=== PATIENT | female | born 1985 | race American Indian/Alaskan Native ===

== ENCOUNTER 2017-05-07 13:57 | Emergency (ER) | payer SELFPAY | END 2017-05-07 13:58 | disposition left against medical advice (07) | LOC: ED 13:57 | DX: M54.5 Low back pain (principal); Z53.21 Procedure and treatment not carried out due to patient leaving prior to being seen by health care provider ==

== ENCOUNTER 2017-05-08 18:30 | Emergency (ER) | payer MEDICAID ==
[2017-05-08] MEDS ORDERED: ALDOMET PO ONE (19:44)
[2017-05-08 20:28] LABS: Basophils % (Auto) 0.3 % (0.0-1.8); Hematocrit 33.4 % (30.3-42.9); Hemoglobin 11.1 gm/dl (10.1-14.3); Mean Corpuscular HGB Conc 33 % (30-34); Mean Corpuscular Hemoglobin 28 pg (28-32); Mean Corpuscular Volume 85 fl (79-97); Platelet Count 209 K/mm3 (140-440); Red Blood Count 3.93 M/mm3 (3.65-5.03); Red Cell Distribution Width 13.5 % (13.2-15.2); White Blood Count 7.9 K/mm3 (4.5-11.0)
[2017-05-08] MEDS ORDERED: NORCO 10/325 PO ONE (22:35)
--- NOTE | 2017-05-08 22:41 | Emergency Department Report ---
ED General Adult HPI - General Chief complaint: High BP Stated complaint: ,BACK PAIN Time Seen by Provider: 05/08/17 22:34 Source: patient Mode of arrival: Ambulatory Limitations: No Limitations - History of Present Illness Initial comments: Patient is a 31-year-old female past medical history of preeclampsia and hypertension who presents with lower back pain and migraine. Patient states that her back pain is a 9 out of 10 nothing makes it better and nothing makes it worse. She states that the pain radiates down to her buttocks as an achy type of pain that's intermittent. Patient denies having any chest pain or any shortness of breath. She also denies having any nausea or vomiting. Severity scale (0 -10): 8 - Related Data Home Medications Medication Instructions Recorded Confirmed Last Taken ALBUTEROL Inhaler [Proair] 2 puff IH QID PRN 08/20/15 08/20/15 Unknown Labetalol [Normodyne] 200 mg PO BID 08/20/15 08/20/15 Unknown Allergies Allergy/AdvReac Type Severity Reaction Status Date / Time Iodinated Contrast- Oral and Allergy Hives Verified 08/20/15 15:24 IV Dye metoclopramide HCl Allergy tachycardia, Verified 08/20/15 15:24 [From Reglan] elevates BP ED Review of Systems ROS: Stated complaint: ,BACK PAIN Other details as noted in HPI Constitutional: denies: chills, fever Eyes: denies: eye pain, eye discharge, vision change ENT: denies: ear pain, throat pain Respiratory: denies: cough, shortness of breath, wheezing Cardiovascular: denies: chest pain, palpitations Endocrine: no symptoms reported Gastrointestinal: denies: abdominal pain, nausea, diarrhea Genitourinary: denies: urgency, dysuria, discharge Musculoskeletal: back pain. denies: joint swelling, arthralgia Skin: denies: rash, lesions Neurological: denies: headache, weakness, paresthesias Psychiatric: denies: anxiety, depression Hematological/Lymphatic: denies: easy bleeding, easy bruising ED Past Medical Hx - Past Medical History Previous Medical History?: Yes Hx Hypertension: Yes (since 2009) Hx Congestive Heart Failure: No Hx Diabetes: No Hx Deep Vein Thrombosis: No Hx Renal Disease: No Hx Sickle Cell Disease: No Hx Headaches / Migraines: Yes (migraines) Hx Seizures: No Hx Asthma: Yes (last used inhaler 2 mos ago) Hx COPD: No Hx HIV: No - Surgical History Past Surgical History?: Yes Hx Breast Surgery: Yes (reduction) Additional Surgical History: 3 C-sections - Social History Smoking Status: Never Smoker Substance Use Type: Prescribed - Medications Home Medications: Home Medications Medication Instructions Recorded Confirmed Last Taken Type ALBUTEROL Inhaler [Proair] 2 puff IH QID PRN 08/20/15 08/20/15 Unknown History Labetalol [Normodyne] 200 mg PO BID 08/20/15 08/20/15 Unknown History ED Physical Exam - General Limitations: No Limitations General appearance: alert, in no apparent distress - Head Head exam: Present: atraumatic, normocephalic - Eye Eye exam: Present: normal appearance - ENT ENT exam: Present: mucous membranes moist - Neck Neck exam: Present: normal inspection - Respiratory Respiratory exam: Present: normal lung sounds bilaterally. Absent: respiratory distress - Cardiovascular Cardiovascular Exam: Present: regular rate, normal rhythm. Absent: systolic murmur, diastolic murmur, rubs, gallop - GI/Abdominal GI/Abdominal exam: Present: soft, normal bowel sounds - Extremities Exam Extremities exam: Present: normal inspection - Back Exam Back exam: Present: normal inspection - Neurological Exam Neurological exam: Present: alert, oriented X3 - Psychiatric Psychiatric exam: Present: normal affect, normal mood - Skin Skin exam: Present: warm, dry, intact, normal color. Absent: rash ED Course Vital Signs 05/08/17 05/08/17 05/08/17 19:39 22:06 22:30 Temperature 98.7 F 98.6 F Pulse Rate 90 93 H Respiratory 18 18 Rate Blood Pressure 186/108 189/124 150/93 Blood Pressure [Left] O2 Sat by Pulse 100 100 99 Oximetry 05/08/17 05/08/17 05/08/17 22:34 23:00 23:31 Temperature 98.3 F Pulse Rate 93 H Respiratory 19 Rate Blood Pressure 160/91 169/81 Blood Pressure 150/93 [Left] O2 Sat by Pulse 100 100 100 Oximetry - Consultations Consultation #1: 05/09/17 00:[address] Chan patient will need to continue to take her methyldopa and to follow-up with him. ED Medical Decision Making - Lab Data Result diagrams: 05/08/17 20:02 Lab Results 05/08/17 05/08/17 05/08/17 Range/Units 20:02 20:02 20:02 WBC 7.9 (4.5-11.0) K/mm3 RBC 3.93 (3.65-5.03) M/mm3 Hgb 11.1 (10.1-14.3) gm/dl Hct 33.4 (30.3-42.9) % MCV 85 (79-97) fl MCH 28 (28-32) pg MCHC 33 (30-34) % RDW 13.5 (13.2-15.2) % Plt Count 209 (140-440) K/mm3 Lymph % (Auto) 34.3 (13.4-35.0) % Morrill % (Auto) 5.0 (0.0-7.3) % Eos % (Auto) 1.0 (0.0-4.3) % Baso % (Auto) 0.3 (0.0-1.8) % Lymph # 2.7 (1.2-5.4) K/mm3 Morrill # 0.4 (0.0-0.8) K/mm3 Eos # 0.1 (0.0-0.4) K/mm3 Baso # 0.0 (0.0-0.1) K/mm3 Seg Neutrophils % 59.4 (40.0-70.0) % Seg Neutrophils # 4.7 (1.8-7.7) K/mm3 HCG, Quant 18501 H (0-4) mIU/mL Urine Color (Yellow) Urine Turbidity (Clear) Urine pH (5.0-7.0) Ur Specific Jerome (1.003-1.030) Urine Protein (Negative) mg/dL Urine Glucose (UA) (Negative) mg/dL Urine Ketones (Negative) mg/dL Urine Blood (Negative) Urine Nitrite (Negative) Urine Bilirubin (Negative) Urine Urobilinogen (<2.0) mg/dL Ur Leukocyte Esterase (Negative) Urine WBC (Auto) (0.0-6.0) /HPF Urine RBC (Auto) (0.0-6.0) /HPF U Epithel Cells (Auto) (0-13.0) /HPF Urine Bacteria (Auto) (Negative) /HPF Calcium Oxalate Crystal Urine Mucus /HPF Blood Type A POSITIVE Antibody Screen TNR SAJAN Antibody Screen Negative 05/08/17 Range/Units 23:36 WBC (4.5-11.0) K/mm3 RBC (3.65-5.03) M/mm3 Hgb (10.1-14.3) gm/dl Hct (30.3-42.9) % MCV (79-97) fl MCH (28-32) pg MCHC (30-34) % RDW (13.2-15.2) % Plt Count (140-440) K/mm3 Lymph % (Auto) (13.4-35.0) % Morrill % (Auto) (0.0-7.3) % Eos % (Auto) (0.0-4.3) % Baso % (Auto) (0.0-1.8) % Lymph # (1.2-5.4) K/mm3 Morrill # (0.0-0.8) K/mm3 Eos # (0.0-0.4) K/mm3 Baso # (0.0-0.1) K/mm3 Seg Neutrophils % (40.0-70.0) % Seg Neutrophils # (1.8-7.7) K/mm3 HCG, Quant (0-4) mIU/mL Urine Color Yellow (Yellow) Urine Turbidity Clear (Clear) Urine pH 6.0 (5.0-7.0) Ur Specific Jerome 1.018 (1.003-1.030) Urine Protein <15 mg/dl (Negative) mg/dL Urine Glucose (UA) Neg (Negative) mg/dL Urine Ketones Neg (Negative) mg/dL Urine Blood Neg (Negative) Urine Nitrite Neg (Negative) Urine Bilirubin Neg (Negative) Urine Urobilinogen 2.0 (<2.0) mg/dL Ur Leukocyte Esterase Neg (Negative) Urine WBC (Auto) 2.0 (0.0-6.0) /HPF Urine RBC (Auto) 2.0 (0.0-6.0) /HPF U Epithel Cells (Auto) 10.0 (0-13.0) /HPF Urine Bacteria (Auto) 1+ (Negative) /HPF Calcium Oxalate Crystal 2+ Urine Mucus Few /HPF Blood Type Antibody Screen SAJAN Antibody Screen - Medical Decision Making Chief medical diagnosis: Differential medical diagnosis: UTI, lumbosacral strain, metabolic abnormality I will get CBC, CMP, IM pain medication, oral pain medication and patient will get methyldopa Patient is 16 weeks no vaginal discharge no vaginal bleeding she can follow up with Dr. Chan. Gave the patient additional verbal discharge instructions. Patient agrees with plan. Critical care attestation.: If time is entered above; I have spent that time in minutes in the direct care of this critically ill patient, excluding procedure time. ED Disposition Clinical Impression: Back pain affecting in first trimester, Chronic hypertension in , Obesity, Class III, BMI 40-49.9 (morbid obesity) Disposition: - TO HOME OR SELFCARE Is pt being admited?: No Does the pt Need Aspirin: No Condition: Stable Instructions: Hypertension (ED) Referrals: RODDY CHAN MD [Primary Care Provider] - 3-5 Days
[2017-05-09] MEDS ORDERED: MORPHINE IM ONE (00:07)
[2017-05-09 00:09] LABS: Bacteria,Urine 1+ /HPF (Negative); Bilirubin,Urine NEG (Negative); Blood,Urine NEG (Negative); Ketones,Urine NEG (Negative); Leukocyte Esterase,Urine NEG (Negative); Mucus,Urine FEW /HPF; Nitrite,Urine NEG (Negative); Protein,Urine <15 mg/dL mg/dL (Negative)
[2017-05-09 02:02] VITALS: BP 161/91
== END 2017-05-09 01:50 | disposition home or self-care (01) ==
LOC: ED 18:30
DX: O14.92 Unspecified pre-eclampsia, second trimester (principal); Z3A.16 16 weeks gestation of pregnancy; O26.892 Other specified pregnancy related conditions, second trimester; M54.9 Dorsalgia, unspecified; E66.01 Morbid (severe) obesity due to excess calories; Z68.41 Body mass index [BMI] 40.0-44.9, adult; G43.909 Migraine, unspecified, not intractable, without status migrainosus; Z88.8 Allergy status to other drugs, medicaments and biological substances
CPT/HCPCS: 36415; 81001; 84702; 85025; 86850; 86900; 86901; 96372; 99283; J2270

== ENCOUNTER 2017-07-05 19:33 | Outpatient (CLI) | payer BC, MEDICAID ==
[2017-07-05] MEDS ORDERED: LACTATED RINGERS 1,000 ML IV ONE (20:07)
[2017-07-05 20:14] VITALS: BP 149/80
[2017-07-05 20:54] LABS: Bacteria,Urine 1+ /HPF (Negative); Bilirubin,Urine NEG (Negative); Blood,Urine NEG (Negative); Ketones,Urine TR mg/dL (Negative); Leukocyte Esterase,Urine NEG (Negative); Mucus,Urine FEW /HPF; Nitrite,Urine NEG (Negative); Protein,Urine <15 mg/dL mg/dL (Negative); Urobilinogen,Urine < 2.0 mg/dL (<2.0)
== END 2017-07-05 21:50 | disposition home or self-care (01) ==
LOC: TRG 19:33
PROVIDERS: ATTEND Obstetrics & Gynecology Gynecology
DX: O47.02 False labor before 37 completed weeks of gestation, second trimester (principal); Z3A.26 26 weeks gestation of pregnancy
CPT/HCPCS: 81001

== ENCOUNTER 2017-07-26 00:38 | Outpatient (CLI) | payer BC, MEDICAID ==
[2017-07-26] MEDS ORDERED: LACTATED RINGERS 500 ML IV ONE (00:53)
[2017-07-26] MEDS ORDERED: TYLENOL PO ONE (02:21)
[2017-07-26] MEDS ORDERED: TYLENOL ONE (02:33)
[2017-07-31 05:41] VITALS: BP 147/64
== END 2017-07-26 03:52 | disposition home or self-care (01) ==
LOC: TRG 00:38
PROVIDERS: ATTEND Obstetrics & Gynecology Gynecology
DX: O13.3 Gestational [pregnancy-induced] hypertension without significant proteinuria, third trimester (principal); O26.893 Other specified pregnancy related conditions, third trimester; R51 Headache; H53.8 Other visual disturbances; Z3A.29 29 weeks gestation of pregnancy
CPT/HCPCS: 59025; J7120

== ENCOUNTER 2017-07-29 17:39 | Inpatient (IN) | payer BC, MEDICAID ==
--- NOTE | 2017-07-29 17:52 | History and Physical Report ---
History of Present Illness Date of examination: 07/29/17 Date of admission: 07/29/17 17:39 Chief complaint: Elevated blood pressure History of present illness: 31-year-old at 29+2 wks is referred from [facility] with above complaints and issues, she is a [facility] patient. Essential history is patient with history of chronic hypertension on methyldopa. She complains of acute onset of severe headache, her blood pressure in clinic per [facility] is in the 140 to 160s over 80s to 90s. She claims to be compliant with her blood pressure medication. She has a history of prior preeclampsia with her pregnancies. Presented with similar complaints at 38 weeks in 2015. No vaginal bleeding, no loss of fluid no contractions post movement She desires permanent sterilization Past History Past Medical History: asthma, hypertension Past Surgical History: section (# 3) [employer] History: denies: HIV, trichomonas Social history: single, full code. denies: Lives alone, lives with family, smoking, IV drug use - Obstetrical History Expected Date of Delivery: 10/12/17 Actual Gestation: 29 Week(s) 2 Day(s) : 5 Para: 3 (2 living infants) Medications and Allergies Allergies Allergy/AdvReac Type Severity Reaction Status Date / Time Iodinated Contrast- Oral and Allergy Hives Verified 08/20/15 15:24 IV Dye metoclopramide HCl Allergy tachycardia, Verified 08/20/15 15:24 [From Reglan] elevates BP prochlorperazine Allergy Headache Verified 07/29/17 18:12 [From Compazine] Home Medications Medication Instructions Recorded Confirmed Last Taken Type ALBUTEROL Inhaler [Proair] 2 puff IH QID PRN 08/20/15 08/20/15 Unknown History Labetalol [Normodyne] 200 mg PO BID 08/20/15 08/20/15 Unknown History Review of Systems Constitutional: chronic headaches, no weight loss, no weight gain, no fever, no chills, no sweats Eyes: blurred vision, no diplopia, no discharge, no photophobia, no loss of vision, no blind spots Cardiovascular: high blood pressure, no chest pain, no orthopnea, no edema, no syncope, no lightheadedness, no shortness of breath, no dyspnea on exertion, no paroxysmal nocturnal dyspnea Respiratory: no cough, no cough with sputum, no hemoptysis, no shortness of breath, no dyspnea on exertion Gastrointestinal: no abdominal pain, no nausea, no vomiting, no heartburn, no indigestion - Physical Exam Cardiovascular: Regular rate, Normal S1, Normal S2 Lungs: Positive: Clear to auscultation, Normal air movement Abdomen: Positive: normal appearance, soft. Negative: distention, tenderness, guarding, rigidity Genitourinary (Female): Positive: normal external genitalia Uterus: Positive: enlarged (Difficult to estimate body size due to habitus) Extremities: Positive: normal Results All other labs normal. Assessment and Plan A: 31-year-old 012 at 29+2 weeks admitted for observation -Rule out superimposed preeclampsia Issues -New onset headache -3 prior C-sections -Chronic hypertension -Obesity class 3 -Desires permanent sterilization P: -Admit -Obtain HELLP labs -Obtain growth scan and BPP -Start magnesium per protocol -Will change antihypertensives from methyldopa to labetalol. If patient's asthma worsens, will discontinue and switch back to methyldopa -Celestone course -She has signed consent for tubal ligation -NICU consult complete - Patient Problems (1) 29 weeks gestation of Current Visit: Yes Status: Acute (2) Hypertension affecting in third trimester Current Visit: Yes Status: Acute (3) Maternal morbid obesity in third trimester, antepartum Current Visit: Yes Status: Acute (4) History of 3 sections Current Visit: Yes Status: Acute
[2017-07-29] MEDS ORDERED: APRESOLINE IV PRN (18:02)
[2017-07-29] MEDS ORDERED: NORMODYNE IV PRN (18:07)
[2017-07-29] MEDS ORDERED: TYLENOL PO PRN (18:10)
[2017-07-29] MEDS: TYLENOL PO PRN (18:43)
[2017-07-29 18:53] LABS: Hematocrit 32.8 % (30.3-42.9); Hemoglobin 11.2 gm/dl (10.1-14.3); Mean Corpuscular HGB Conc 34 % (30-34); Mean Corpuscular Hemoglobin 28 pg (28-32); Mean Corpuscular Volume 83 fl (79-97); Platelet Count 193 K/mm3 (140-440); Red Blood Count 3.95 M/mm3 (3.65-5.03); Red Cell Distribution Width 14.1 % (13.2-15.2)
[2017-07-29] MEDS ORDERED: MAGNESIUM SULFATE 4GM/100ML 4 GM/100 ML BAG IV ONE (19:00)
[2017-07-29 19:11] LABS: Alanine Aminotransferase 12 units/L (7-56); Albumin 3.3 g/dL (3.9-5); BUN/Creatinine Ratio 15; Blood Urea Nitrogen 6 mg/dL (7-17); Calcium 9.1 mg/dL (8.4-10.2); Hemolysis Index 3
[2017-07-29 19:13] LABS: Bilirubin,Direct < 0.2 mg/dL (0-0.2)
[2017-07-29] MEDS: LACTATED RINGERS 1,000 ML IV SCH (19:50)
[2017-07-29] MEDS: CELESTONE SOLUSPAN IM SCH (20:00)
[2017-07-29] MEDS: MAGNESIUM SULFATE 40GM/1000ML 40 GM/1,000 ML BAG IV SCH (20:47)
[2017-07-29] MEDS: NORMODYNE PO SCH (23:36)
[2017-07-30] MEDS: TYLENOL PO PRN ×2 (00:54→09:42)
--- NOTE | 2017-07-30 01:53 | Ultrasound Report ---
FINAL REPORT EXAM: US OB BPP WO NON-STRESS HISTORY: 29 wks with elevated BP and headache TECHNIQUE: A biophysical profile was performed. FINDINGS: For breathing movements, a score of 2 out of 2 was obtained. For movements, a score of 2 out of 2 was obtained. For posterior in tone, a score of 2 out of 2 was obtained. For qualitative amniotic fluid volume, a score of 2 out of 2 was obtained. The total biophysical profile score is 8 out of 8. The heart rate is 156 BPM. IMPRESSION: Biophysical profile score of 8 out of 8. heart rate is 156 BPM
--- NOTE | 2017-07-30 01:58 | Ultrasound Report ---
FINAL REPORT EXAM: US OB > = 14 WEEKS FETUS HISTORY: [facility] scan 29wks with CHTN r/o pre eclampsia TECHNIQUE: Routine transabdominal sonographic evaluation was obtained of the pelvis. FINDINGS: There is a single intrauterine in cephalic presentation with a sonographic gestational age of 30 weeks 2 days based on sonographic criteria. There is normal motion and cardiac activity, 156 BPM. The placenta is grade 1 and is fundal in position. The ELANA is 13.9 centimeters which is normal. There are no gross anomalies involving the stomach, kidneys, bladder, diaphragm, heart, 3 vessel cord or abdominal cord insertion. The spine, cerebellum, ventricles, choroid plexus and four-chamber view of the heart cannot be evaluated because of positioning. The estimated weight is 1497 grams. IMPRESSION: Single viable intrauterine with an estimated gestational age of 30 weeks 2 days as described. Cephalic presentation.
--- NOTE | 2017-07-30 08:15 | Progress Note ---
Assessment and Plan A: 31-year-old 012 at 29+3 weeks admitted for observation -Rule out superimposed preeclampsia Issues -s/p BMZ # 1 on 07/29/17 -New onset headache - Now resolved -3 prior C-sections -Chronic hypertension - BP improved -Obesity class 3 -Desires permanent sterilization -Growth wnl and BPP 03/03 on 07/30/17 Meds -Labetalol 200mg BID (Methyldopa D/marjorie) -Magnesium per protocol P: -24 hour urine protein in progress -Completes Celestone this night -Possible discharge home tomorrow - Patient Problems (1) 29 weeks gestation of Current Visit: Yes Status: Acute (2) Hypertension affecting in third trimester Current Visit: Yes Status: Acute (3) Maternal morbid obesity in third trimester, antepartum Current Visit: Yes Status: Acute (4) History of 3 sections Current Visit: Yes Status: Acute Subjective - Subjective Date of service: 07/30/17 Principal diagnosis: HD# 2, IUP at 29+3 wks, CHTN r/o Pre-E Interval history: Patient seen, doing well. Stable overnight with no issues. Blood pressure markedly improved with range 108 120/50 to 60s; HELLP labs within normal. Her headache has improved, no longer present. She denies any other signs symptoms of preeclampsia No contractions, loss of fluid vaginal bleeding plus movement Patient reports: new complaints, movement normal, no loss of fluid, no vaginal bleeding, no contractions Objective - Vital Signs Vital Signs: Vital Signs - 12hr 07/29/17 07/29/17 07/29/17 20:16 20:46 21:16 Temperature Pulse Rate 103 H 96 H 97 H Respiratory Rate Blood Pressure 135/75 143/79 142/81 Blood Pressure [Left] O2 Sat by Pulse Oximetry 07/29/17 07/29/17 07/29/17 21:43 21:58 22:14 Temperature Pulse Rate 102 H 105 H 111 H Respiratory Rate Blood Pressure 133/75 138/77 170/107 Blood Pressure [Left] O2 Sat by Pulse Oximetry 07/29/17 07/29/17 07/29/17 22:29 22:43 22:58 Temperature Pulse Rate 108 H 108 H 105 H Respiratory Rate Blood Pressure 155/75 148/79 156/85 Blood Pressure [Left] O2 Sat by Pulse Oximetry 07/29/17 07/29/17 07/29/17 23:13 23:29 23:36 Temperature Pulse Rate 116 H 109 H 109 H Respiratory Rate Blood Pressure 152/79 151/66 151/66 Blood Pressure [Left] O2 Sat by Pulse Oximetry 07/29/17 07/29/17 07/30/17 23:43 23:59 00:44 Temperature Pulse Rate 110 H 112 H 109 H Respiratory Rate Blood Pressure 140/56 157/67 167/81 Blood Pressure [Left] O2 Sat by Pulse Oximetry 07/30/17 07/30/17 07/30/17 00:58 01:13 01:28 Temperature Pulse Rate 103 H 105 H 101 H Respiratory Rate Blood Pressure 144/70 131/67 127/65 Blood Pressure [Left] O2 Sat by Pulse Oximetry 07/30/17 07/30/17 07/30/17 01:43 01:58 02:13 Temperature Pulse Rate 102 H 105 H 98 H Respiratory Rate Blood Pressure 127/59 117/59 129/68 Blood Pressure [Left] O2 Sat by Pulse Oximetry 07/30/17 07/30/17 07/30/17 02:25 02:28 02:29 Temperature Pulse Rate 100 H 99 H 100 H Respiratory Rate Blood Pressure 113/58 Blood Pressure [Left] O2 Sat by Pulse 97 94 Oximetry 07/30/17 07/30/17 07/30/17 02:30 02:35 02:40 Temperature Pulse Rate 100 H 98 H 101 H Respiratory Rate Blood Pressure Blood Pressure [Left] O2 Sat by Pulse 97 96 97 Oximetry 07/30/17 07/30/17 07/30/17 02:43 02:45 02:50 Temperature Pulse Rate 100 H 99 H 100 H Respiratory Rate Blood Pressure 113/58 Blood Pressure [Left] O2 Sat by Pulse 97 97 Oximetry 07/30/17 07/30/17 07/30/17 02:55 02:59 03:00 Temperature Pulse Rate 99 H 103 H 103 H Respiratory Rate Blood Pressure 115/58 Blood Pressure [Left] O2 Sat by Pulse 96 98 Oximetry 07/30/17 07/30/17 07/30/17 03:05 03:10 03:13 Temperature Pulse Rate 104 H 100 H 100 H Respiratory Rate Blood Pressure 110/59 Blood Pressure [Left] O2 Sat by Pulse 98 97 Oximetry 07/30/17 07/30/17 07/30/17 03:15 03:20 03:25 Temperature Pulse Rate 102 H 107 H 100 H Respiratory Rate Blood Pressure Blood Pressure [Left] O2 Sat by Pulse 97 98 97 Oximetry 07/30/17 07/30/17 07/30/17 03:28 03:30 03:35 Temperature Pulse Rate 100 H 97 H 108 H Respiratory 14 Rate Blood Pressure 120/59 Blood Pressure 120/59 [Left] O2 Sat by Pulse 97 96 Oximetry 07/30/17 07/30/17 07/30/17 03:40 03:43 03:45 Temperature Pulse Rate 101 H 106 H 103 H Respiratory Rate Blood Pressure 111/55 Blood Pressure [Left] O2 Sat by Pulse 97 97 Oximetry 07/30/17 07/30/17 07/30/17 03:50 03:55 03:58 Temperature Pulse Rate 101 H 103 H 103 H Respiratory Rate Blood Pressure 108/57 Blood Pressure [Left] O2 Sat by Pulse 97 97 Oximetry 07/30/17 07/30/17 07/30/17 04:00 04:05 04:10 Temperature Pulse Rate 100 H 102 H 103 H Respiratory Rate Blood Pressure Blood Pressure [Left] O2 Sat by Pulse 97 97 97 Oximetry 07/30/17 07/30/17 07/30/17 04:13 04:15 04:20 Temperature Pulse Rate 105 H 103 H 102 H Respiratory Rate Blood Pressure 106/57 Blood Pressure [Left] O2 Sat by Pulse 97 97 Oximetry 07/30/17 07/30/17 07/30/17 04:25 04:28 04:30 Temperature Pulse Rate 102 H 103 H 103 H Respiratory Rate Blood Pressure 102/51 Blood Pressure [Left] O2 Sat by Pulse 97 97 Oximetry 07/30/17 07/30/17 07/30/17 04:35 04:40 04:43 Temperature Pulse Rate 103 H 104 H 103 H Respiratory Rate Blood Pressure 104/56 Blood Pressure [Left] O2 Sat by Pulse 97 97 Oximetry 07/30/17 07/30/17 07/30/17 04:45 04:50 04:55 Temperature Pulse Rate 104 H 104 H 108 H Respiratory Rate Blood Pressure Blood Pressure [Left] O2 Sat by Pulse 97 98 99 Oximetry 07/30/17 07/30/17 07/30/17 05:00 05:05 05:11 Temperature Pulse Rate 110 H 105 H 111 H Respiratory Rate Blood Pressure Blood Pressure [Left] O2 Sat by Pulse 99 98 99 Oximetry 07/30/17 07/30/17 07/30/17 05:13 05:15 05:21 Temperature Pulse Rate 103 H 104 H 104 H Respiratory Rate Blood Pressure 108/53 Blood Pressure [Left] O2 Sat by Pulse 98 98 Oximetry 07/30/17 07/30/17 07/30/17 05:25 05:28 05:31 Temperature Pulse Rate 104 H 110 H 106 H Respiratory Rate Blood Pressure 97/54 Blood Pressure [Left] O2 Sat by Pulse 98 100 Oximetry 07/30/17 07/30/17 07/30/17 05:36 05:42 05:43 Temperature Pulse Rate 102 H 104 H 102 H Respiratory Rate Blood Pressure 84/46 Blood Pressure [Left] O2 Sat by Pulse 100 100 Oximetry 07/30/17 07/30/17 07/30/17 05:47 05:51 05:57 Temperature Pulse Rate 103 H 103 H 104 H Respiratory Rate Blood Pressure Blood Pressure [Left] O2 Sat by Pulse 100 100 100 Oximetry 07/30/17 07/30/17 07/30/17 05:58 06:01 06:02 Temperature 97.3 F L Pulse Rate 104 H 105 H Respiratory Rate Blood Pressure 129/68 Blood Pressure [Left] O2 Sat by Pulse 100 Oximetry 07/30/17 07/30/17 07/30/17 06:07 06:11 06:13 Temperature Pulse Rate 103 H 101 H 102 H Respiratory Rate Blood Pressure 118/63 Blood Pressure [Left] O2 Sat by Pulse 98 98 Oximetry 07/30/17 07/30/17 07/30/17 06:17 06:25 06:28 Temperature Pulse Rate 105 H 104 H 104 H Respiratory Rate Blood Pressure 114/63 Blood Pressure [Left] O2 Sat by Pulse 98 98 Oximetry 07/30/17 07/30/17 07/30/17 06:30 06:35 06:40 Temperature Pulse Rate 106 H 106 H 104 H Respiratory Rate Blood Pressure Blood Pressure [Left] O2 Sat by Pulse 98 98 98 Oximetry 07/30/17 07/30/17 07/30/17 06:43 06:44 06:50 Temperature Pulse Rate 102 H 103 H 102 H Respiratory Rate Blood Pressure 110/60 Blood Pressure [Left] O2 Sat by Pulse 98 98 Oximetry 07/30/17 07/30/17 07/30/17 06:54 06:58 07:00 Temperature Pulse Rate 103 H 107 H 104 H Respiratory Rate Blood Pressure 111/62 Blood Pressure [Left] O2 Sat by Pulse 97 97 Oximetry 07/30/17 07/30/17 07/30/17 07:05 07:10 07:13 Temperature Pulse Rate 105 H 104 H 106 H Respiratory Rate Blood Pressure 109/63 Blood Pressure [Left] O2 Sat by Pulse 97 97 Oximetry 07/30/17 07/30/17 07/30/17 07:15 07:20 07:24 Temperature 98.4 F Pulse Rate 103 H 101 H 102 H Respiratory 18 Rate Blood Pressure Blood Pressure [Left] O2 Sat by Pulse 99 98 97 Oximetry 07/30/17 07/30/17 07/30/17 07:28 07:30 07:35 Temperature Pulse Rate 101 H 104 H 103 H Respiratory Rate Blood Pressure 113/59 Blood Pressure [Left] O2 Sat by Pulse 98 98 Oximetry 07/30/17 07/30/17 07/30/17 07:40 07:43 07:45 Temperature Pulse Rate 104 H 104 H 104 H Respiratory Rate Blood Pressure 123/61 Blood Pressure [Left] O2 Sat by Pulse 98 98 Oximetry 07/30/17 07/30/17 07/30/17 07:50 07:55 08:00 Temperature Pulse Rate 102 H 104 H 104 H Respiratory Rate Blood Pressure Blood Pressure [Left] O2 Sat by Pulse 98 100 100 Oximetry 07/30/17 07/30/17 08:05 08:10 Temperature Pulse Rate 99 H 101 H Respiratory Rate Blood Pressure Blood Pressure [Left] O2 Sat by Pulse 100 100 Oximetry - Labs Labs: Abnormal Labs 07/29/17 07/30/17 07/30/17 18:30 00:38 04:51 Potassium 3.5 L Carbon Dioxide 20 L BUN 6 L Creatinine 0.4 L Magnesium 3.90 H 4.20 H Albumin 3.3 L Laboratory Results - last 24 hr 07/29/17 07/29/17 07/30/17 18:30 18:30 00:38 WBC 9.7 RBC 3.95 Hgb 11.2 Hct 32.8 MCV 83 MCH 28 MCHC 34 RDW 14.1 Plt Count 193 Sodium 138 Potassium 3.5 L Chloride 100.2 Carbon Dioxide 20 L Anion Gap 21 BUN 6 L Creatinine 0.4 L Estimated GFR > 60 BUN/Creatinine Ratio 15 Glucose 96 Calcium 9.1 Magnesium 3.90 H Total Bilirubin < 0.20 Direct Bilirubin < 0.2 Indirect Bilirubin 0.0 AST 11 ALT 12 Alkaline Phosphatase 48 Total Protein 6.6 Albumin 3.3 L Albumin/Globulin Ratio 1.0 07/30/17 04:51 WBC RBC Hgb Hct MCV MCH MCHC RDW Plt Count Sodium Potassium Chloride Carbon Dioxide Anion Gap BUN Creatinine Estimated GFR BUN/Creatinine Ratio Glucose Calcium Magnesium 4.20 H Total Bilirubin Direct Bilirubin Indirect Bilirubin AST ALT Alkaline Phosphatase Total Protein Albumin Albumin/Globulin Ratio
[2017-07-30] MEDS: LACTATED RINGERS 1,000 ML IV SCH ×2 (08:40→21:42)
[2017-07-30] MEDS: NORMODYNE PO SCH ×2 (09:45→22:25)
[2017-07-30] MEDS ORDERED: FIORICET PO ONE (12:00)
[2017-07-30] MEDS: MAGNESIUM SULFATE 40GM/1000ML 40 GM/1,000 ML BAG IV SCH (16:11)
--- NOTE | 2017-07-30 19:53 | Consultation ---
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: denies: HIV, trichomonas - Obstetrical History : 5 Medications and Allergies Allergies Allergy/AdvReac Type Severity Reaction Status Date / Time Iodinated Contrast- Oral and Allergy Hives Verified 08/20/15 15:24 IV Dye metoclopramide HCl Allergy tachycardia, Verified 08/20/15 15:24 [From Reglan] elevates BP prochlorperazine Allergy Headache Verified 07/29/17 18:12 [From Compazine] Home Medications Medication Instructions Recorded Confirmed Last Taken Type ALBUTEROL Inhaler [Proair] 2 puff IH QID PRN 08/20/15 07/29/17 07/23/17 History Labetalol [Normodyne] 200 mg PO BID 08/20/15 07/29/17 Unknown History Methyldopa 250 mg PO BID 07/29/17 07/29/17 07/29/17 History 0800 Active Meds: Active Medications Acetaminophen (Tylenol) 1,000 mg PO Q6H PRN PRN Reason: Pain, Mild (1-3) Last Admin: 07/30/17 09:42 Dose: 1,000 mg Betamethasone Acet/Betameth SodPhos (Celestone Soluspan) 12 mg IM Q24H BIJAN Last Admin: 07/29/17 20:00 Dose: 12 mg Hydralazine HCl (Apresoline) 5 mg IV Q30MIN PRN PRN Reason: Hypertension Lactated Ringer's (Lactated Ringers) 1,000 mls @ 125 mls/hr IV DIRECT BIJAN Last Admin: 07/30/17 08:40 Dose: 75 mls/hr Magnesium Sulfate (Magnesium Sulfate 40gm/1000ml) 40 gm in 1,000 mls @ 50 mls/ hr IV TITR BIJAN PRN Reason: 2 GM/HR Last Admin: 07/30/17 16:11 Dose: 2 gm/hr, 50 mls/hr Labetalol HCl (Normodyne) 200 mg PO BID BIJAN Last Admin: 07/30/17 09:45 Dose: 200 mg Labetalol HCl (Normodyne) 20 mg IV Q20MIN PRN PRN Reason: Blood Pressure - Vital Signs Vital signs: Vital Signs Temp Resp 98.5 F 20 07/29/17 18:10 07/29/17 18:10 Temp Pulse Resp BP Pulse Ox 98.3 F 109 H 14 140/66 99 07/30/17 19:10 07/30/17 19:10 07/30/17 19:10 07/30/17 19:10 07/30/17 19:10 Results Result Diagrams: 07/29/17 18:30 07/29/17 18:30 Abnormal lab results 07/30/17 07/30/17 07/30/17 Range/Units 00:38 04:51 12:11 Magnesium 3.90 H 4.20 H 4.80 H (1.7-2.3) mg/dL Ur Total Protein 24 Hr (2-200) 07/30/17 07/30/17 Range/Units 19:01 Unknown Magnesium 4.60 H (1.7-2.3) mg/dL Ur Total Protein 24 Hr 262.50 H (2-200) All other labs normal. Assessment and Plan ASSESSMENT -s/p BMZ # 1 on 07/29/17 -New onset headache - Now resolved -3 prior C-sections -Chronic hypertension - BP improved -Obesity class 3 -Desires permanent sterilization -Growth wnl and BPP 8/8 on 07/30/17 Meds -Labetalol 200mg BID (Methyldopa D/marjorie) -Magnesium per protocol RECOMMENDATION: -24 hour urine protein in progress -Completes Celestone this night -Possible discharge home tomorrow Contact [facility] for any change in maternal- status.
[2017-07-30] MEDS ORDERED: AMBIEN PO PRN (22:10)
[2017-07-30] MEDS: CELESTONE SOLUSPAN IM SCH (22:19)
[2017-07-31] MEDS: TYLENOL PO PRN ×2 (00:16→07:53)
--- NOTE | 2017-07-31 06:11 | Progress Note ---
Assessment and Plan A: 31-year-old 012 at 29+3 weeks admitted for observation -24 hr urine is ~ 260 mg -s/p MFM Issues -s/p BMZ # 2 on 07/30/17 -New onset headache - Now resolved -3 prior C-sections -Chronic hypertension - BP improved -Obesity class 3 -Desires permanent sterilization -Growth wnl and BPP 8/ on 07/30/17 Meds -Labetalol 200mg BID (Methyldopa D/marjorie) -Magnesium per protocol P: - Will discharge home at this time -Follow up with MFM next week [facility] - Patient Problems (1) 29 weeks gestation of Current Visit: Yes Status: Acute (2) Hypertension affecting in third trimester Current Visit: Yes Status: Acute (3) Maternal morbid obesity in third trimester, antepartum Current Visit: Yes Status: Acute (4) History of 3 sections Current Visit: Yes Status: Acute Subjective - Subjective Date of service: 07/31/17 Principal diagnosis: HD# 3, IUP at 29+4 wks, CHTN r/o Pre-E Interval history: Patient, doing well. Stable overnight with no issues. Blood pressure markedly improved with range ; HELLP labs within normal. She denies any other signs symptoms of preeclampsia No contractions, loss of fluid vaginal bleeding plus movement 24 hr urine protein result is ~ 260 Patient reports: new complaints, movement normal, no loss of fluid, no vaginal bleeding, no contractions Objective - Vital Signs Vital Signs: Vital Signs - 12hr 07/30/17 07/30/17 07/30/17 19:10 22:25 23:30 Temperature 98.3 F Pulse Rate 109 H 107 H Respiratory 14 Rate Blood Pressure 154/70 Blood Pressure 140/66 135/65 [Left] O2 Sat by Pulse 99 Oximetry 07/31/17 03:40 Temperature 98.3 F Pulse Rate 118 H Respiratory 13 Rate Blood Pressure Blood Pressure 141/69 [Left] O2 Sat by Pulse Oximetry - Labs Labs: Abnormal Labs 07/29/17 07/30/17 07/30/17 18:30 00:38 04:51 Potassium 3.5 L Carbon Dioxide 20 L BUN 6 L Creatinine 0.4 L Magnesium 3.90 H 4.20 H Albumin 3.3 L Ur Total Protein 24 Hr 07/30/17 07/30/17 07/30/17 12:11 19:01 Unknown Potassium Carbon Dioxide BUN Creatinine Magnesium 4.80 H 4.60 H Albumin Ur Total Protein 24 Hr 262.50 H 07/31/17 00:45 Potassium Carbon Dioxide BUN Creatinine Magnesium 4.40 H Albumin Ur Total Protein 24 Hr Laboratory Results - last 24 hr 07/30/17 07/30/17 07/30/17 12:11 19:01 Unknown Magnesium 4.80 H 4.60 H Urine Total Volume 5250 Ur Total Protein 24 Hr 262.50 H Urine Total Protein 5 07/31/17 00:45 Magnesium 4.40 H Urine Total Volume Ur Total Protein 24 Hr Urine Total Protein
--- NOTE | 2017-07-31 06:12 | Discharge Summary ---
Providers - Providers Date of Admission: 07/30/17 08:08 Date of discharge: 07/31/17 Attending physician: RODDY CHAN 07/29/17 18:09 Consult to Physician [CONS] Routine Consulting Provider: HUBER WASHINGTON Reason For Exam: 29 wks with CHTN r/o severe Pre-E Place consult to:: NICU Notified:: VENKATESH (CHARGE NURSE) Phone number called:: [phone] Was contact made?: Yes If yes, spoke with:: VENKATESH Time called:: 10:50 Primary care physician: RODDY CHAN Hospitalization Reason for admission: observation Discharge diagnosis: other (IUP at 29+4 week gestational hypertension) Hospital course: 31-year-old at 29+2 wks is referred from [facility] with elevated BP and headache, she is a [facility] patient. Essential history is patient with history of chronic hypertension on methyldopa. She complains of acute onset of severe headache, her blood pressure in clinic per MFM is in the 140 to 160s over 80s to 90s. She claims to be compliant with her blood pressure medication. She has a history of prior pre-eclampsia with her pregnancies. Presented with similar complaints at 38 weeks in 2014. No vaginal bleeding, no loss of fluid no contractions post movement She desires permanent sterilization She was admitted to the floor and started on magnesium. She completed her steroid course and was seen by MFM 24 hour urine protein collection was obtained and result is 260 A: 31-year-old 012 at 29+3 weeks admitted for observation -24 hr urine is ~ 260 mg Issues -s/p BMZ # 2 on 07/30/17 -New onset headache - Now resolved -3 prior C-sections -Chronic hypertension - BP improved -Obesity class 3 -Desires permanent sterilization -Growth wnl and BPP 03/03 on 07/30/17 Meds -Labetalol 200mg BID (Methyldopa D/marjorie) -Magnesium per protocol P: - Will discharge home at this time -Follow up with MFM next week [facility] Condition at discharge: Good Disposition: DC-01 TO HOME OR SELFCARE - Discharge Diagnoses (1) 29 weeks gestation of Status: Acute (2) Hypertension affecting in third trimester Status: Resolved (3) Maternal morbid obesity in third trimester, antepartum Status: Chronic (4) History of 3 sections Status: Resolved Plan - Provider Discharge Summary Activity: no sex for 6 weeks, no heavy lifting 4 weeks, no strenuous exercise Additional instructions: [] Smoking cessation referral if applicable(refer to patient education folder for contact #) [] Refer to [facility] Booklet Call your doctor immediately for: * Fever > 100.5 * Heavy vaginal bleeding ( >1 pad per hour) * Severe persistent headache * Shortness of breath * Reddened, hot, painful area to leg or breast * Drainage or odor from incision. * Keep incision clean and dry at all times and follow doctor's instructions regarding bathing/showering - Follow up plan Follow up: LUIZA SALMERON MD [Staff Physician] - 7 Days RODDY CHAN MD [Primary Care Provider] - 10 Days Forms: [facility] Discharge Summary, Discharge Signature Page
[2017-08-04 08:08] VITALS: BP 140/73
== END 2017-07-31 09:59 | disposition home or self-care (01) | DRG 781 ==
LOC: LD 17:39 → OBSVTOIN 07-30 08:08
PROVIDERS: ADMIT Obstetrics & Gynecology Gynecology; ATTEND Obstetrics & Gynecology Gynecology
DX: O11.3 Pre-existing hypertension with pre-eclampsia, third trimester (principal); Z68.43 Body mass index [BMI] 50.0-59.9, adult; E66.01 Morbid (severe) obesity due to excess calories; O99.213 Obesity complicating pregnancy, third trimester; O99.513 Diseases of the respiratory system complicating pregnancy, third trimester; J45.909 Unspecified asthma, uncomplicated; Z60.2 Problems related to living alone; Z88.8 Allergy status to other drugs, medicaments and biological substances; Z91.041 Radiographic dye allergy status; Z3A.29 29 weeks gestation of pregnancy; Z79.899 Other long term (current) drug therapy
CPT/HCPCS: 36415; 76805; 76819; 80048; 80074; 83735; 84156; 85027; G0378; G0379; J0702; J3475; J7120

== ENCOUNTER 2019-05-19 09:25 | Outpatient (CLI) | payer MEDICAID ==
--- NOTE | 2019-05-19 12:56 | Mammography Report ---
BILATERAL DIGITAL DIAGNOSTIC MAMMOGRAM WITH CAD -- 05/19/2019 RIGHT LIMITED BREAST ULTRASOUND INDICATION: 33-year-old with a family history of breast cancer and right breast pain. N64.4 3 of a bi lateral reduction mammoplasty in 2010. TECHNIQUE: Digital bilateral mammographic imaging was performed. Limited ultrasound was performed. T his examination was interpreted with the benefit of Computer-Aided Detection (CAD) analysis. COMPARISON: None. FINDINGS: Breast Density: The breasts are almost entirely fatty. MAMMOGRAPHIC FINDINGS: There is no evidence of dominant mass, suspicious calcifications or architectu ral distortion in either breast. Minimal postsurgical scarring. ULTRASOUND FINDINGS: Targeted ultrasound evaluation was performed of the area of interest. Ultrasou nd was performed in the area of pain at 9:00 and demonstrated normal fibroglandular and fatty structu res. Tenderness was elicited in the area of scar. IMPRESSION: Negative mammogram and negative targeted right breast ultrasound. The right breast pain a ppears to be related to a surgical scar. Follow up recommendation: Routine yearly BI-RADS Category 1: Negative. A "normal" or negative report should not discourage follow up or biopsy of a clinically significant f inding. A written summary of these findings will be mailed to the patient. The patient will be entered into a mammography reporting system which will generate a reminder letter for the patient's next appointmen t at the appropriate interval. According to the [employer], yearly mammograms are recommended starting at age 40 and continuing as long as a woman is in good health. Breast MRI is recommended for women with an izaiah roximately 20-25% or greater lifetime risk of breast cancer, including women with a strong family his tory of breast or ovarian cancer and women who have been treated for Hodgkin's disease. Signer Name: Rogelio Garcia MD Signed: 05/19/2019 12:52 PM Workstation Name: [id number]
== END 2019-05-19 09:26 | disposition home or self-care (01) ==
LOC: MAMMO 09:25
PROVIDERS: ATTEND Advanced Practice Midwife
DX: N64.4 Mastodynia (principal); E66.01 Morbid (severe) obesity due to excess calories; I10 Essential (primary) hypertension

== ENCOUNTER 2019-07-14 01:54 | Emergency (ER) | payer MEDICAID ==
[2019-07-14 02:10] VITALS: BP 151/96
== END 2019-07-14 03:30 | disposition left against medical advice (07) ==
LOC: ED 01:54
DX: T21.22XA Burn of second degree of abdominal wall, initial encounter (principal); Z53.21 Procedure and treatment not carried out due to patient leaving prior to being seen by health care provider

== ENCOUNTER 2021-04-30 01:19 | Emergency (ER) | payer MEDICAID ==
[2021-04-30] MEDS ORDERED: cloNIDine 0.2 MG TAB PO SCH ×2 (02:30→22:00)
[2021-04-30] MEDS ORDERED: ALPRAZolam 1 MG TAB PO ONE (02:31)
--- NOTE | 2021-04-30 02:33 | Emergency Department Report ---
HPI <YANIRA SIM - Last Filed: 04/30/21 13:32> - HPI HPI: 35-year-old female presents to the emergency department for a mental health evaluation with the complaints of anxiety, suicidal and homicidal ideations. The patient says that she has a diagnosed history of anxiety for which she takes buspirone, but that medication "just makes me sleep." She says that she has a nonspecific plan to kill herself and her children. She says that she has "a lot going on in my life right now." She denies any hallucinations. She denies ever having been to an inpatient psychiatric facility. She has a medical history of hypertension and asthma. She takes amlodipine 10 mg once daily and Catapres 0.2 mg at night, and the patient says she is compliant. She denies any tobacco or illicit drug use. <RADHA JOYA S - Last Filed: 04/30/21 14:53> - General Chief Complaint: Psych ED Past Medical Hx <YANIRA SIM - Last Filed: 04/30/21 13:32> - Past Medical History Hx Hypertension: Yes (labetalol BID) Hx Congestive Heart Failure: No Hx Diabetes: No Hx Deep Vein Thrombosis: No Hx Renal Disease: No Hx Sickle Cell Disease: No Hx Headaches / Migraines: Yes (migraines) Hx Seizures: No Hx Asthma: Yes (albuterol at 2100) Hx COPD: No Hx HIV: No - Surgical History Hx Breast Surgery: Yes (reduction) Additional Surgical History: 3 C-sections - Social History Smoking Status: Never Smoker Substance Use Type: Alcohol <RADHA JOYA S - Last Filed: 04/30/21 14:53> - Medications Home Medications: Home Medications Medication Instructions Recorded Confirmed Last Taken Type amLODIPine [Norvasc] 10 mg PO DAILY 04/30/21 04/30/21 04/30/21 09:37 History cloNIDine [Catapres] 0.2 mg PO QHS 04/30/21 04/30/21 Unknown History ED Review of Systems ROS: Stated complaint: MH EVAL/SI Other details as noted in HPI <YANIRA SIM - Last Filed: 04/30/21 13:32> ROS: Stated complaint: MH EVAL/SI Other details as noted in HPI Comment: All other systems reviewed and negative Constitutional: denies: chills, fever Eyes: denies: eye pain, vision change ENT: denies: ear pain, throat pain Respiratory: denies: cough, shortness of breath Cardiovascular: denies: chest pain, palpitations Gastrointestinal: denies: abdominal pain, vomiting Musculoskeletal: denies: back pain, arthralgia Skin: denies: rash, lesions Neurological: denies: headache, weakness Psychiatric: homicidal thoughts, suicidal thoughts. denies: auditory hallucinations, visual hallucinations <RADHA JOYA - Last Filed: 04/30/21 14:53> Physical Exam - Physical Exam Vital Signs: Vital Signs 04/30/21 04/30/21 04/30/21 01:32 02:32 02:33 Temperature 98.7 F Pulse Rate 96 H 105 H Respiratory 18 18 Rate Blood Pressure Blood Pressure 184/100 193/122 [Left] O2 Sat by Pulse 97 100 100 Oximetry 04/30/21 04/30/21 04/30/21 02:43 03:13 09:33 Temperature Pulse Rate 105 H 83 85 Respiratory Rate Blood Pressure 198/123 193/94 Blood Pressure 180/95 [Left] O2 Sat by Pulse Oximetry 04/30/21 04/30/21 04/30/21 09:51 12:04 12:52 Temperature 98.7 F Pulse Rate 85 82 86 Respiratory 20 Rate Blood Pressure Blood Pressure 180/95 124/82 122/64 [Left] O2 Sat by Pulse 97 Oximetry <YANIRA SIM - Last Filed: 04/30/21 13:32> - Physical Exam Vital Signs: Vital Signs 04/30/21 01:32 Temperature 98.7 F Pulse Rate 96 H Respiratory 18 Rate Blood Pressure 184/100 [Left] O2 Sat by Pulse 97 Oximetry Physical Exam: GENERAL: The patient is well-developed well-nourished. HENT: Normocephalic. Atraumatic. Patient has moist mucous membranes. EYES: Extraocular motions are intact. NECK: Supple. Trachea is midline. CHEST/LUNGS: Clear to auscultation. There is no respiratory distress noted. HEART/CARDIOVASCULAR: Regular. There is no tachycardia. There is no murmur. ABDOMEN: Abdomen is soft, nontender. Patient has normal bowel sounds. Obese habitus. SKIN: Skin is warm and dry. NEURO: The patient is awake, alert, and oriented. The patient is cooperative. The patient has no focal neurologic deficits. Normal speech. MUSCULOSKELETAL: There is no tenderness or deformity. There is no limitation range of motion. PSYCH: Patient appears anxious. <RADHA JOYA - Last Filed: 04/30/21 14:53> ED Course Vital Signs 04/30/21 04/30/21 04/30/21 01:32 02:32 02:33 Temperature 98.7 F Pulse Rate 96 H 105 H Respiratory 18 18 Rate Blood Pressure Blood Pressure 184/100 193/122 [Left] O2 Sat by Pulse 97 100 100 Oximetry 04/30/21 04/30/21 04/30/21 02:43 03:13 09:33 Temperature Pulse Rate 105 H 83 85 Respiratory Rate Blood Pressure 198/123 193/94 Blood Pressure 180/95 [Left] O2 Sat by Pulse Oximetry 04/30/21 04/30/21 04/30/21 09:51 12:04 12:52 Temperature 98.7 F Pulse Rate 85 82 86 Respiratory 20 Rate Blood Pressure Blood Pressure 180/95 124/82 122/64 [Left] O2 Sat by Pulse 97 Oximetry <YANIRA SIM - Last Filed: 04/30/21 13:32> Vital Signs 04/30/21 01:32 Temperature 98.7 F Pulse Rate 96 H Respiratory 18 Rate Blood Pressure 184/100 [Left] O2 Sat by Pulse 97 Oximetry <RADHA JOYA S - Last Filed: 04/30/21 14:53> ED Medical Decision Making - Lab Data Result diagrams: 04/30/21 03:16 04/30/21 03:16 <YANIRA SIM - Last Filed: 04/30/21 13:32> - Lab Data Result diagrams: 04/30/21 03:16 04/30/21 03:16 Lab Results 04/30/21 04/30/21 04/30/21 Range/Units 03:16 03:16 03:16 WBC 8.0 (4.5-11.0) K/mm3 RBC 4.43 (3.65-5.03) M/mm3 Hgb 12.7 (10.1-14.3) gm/dl Hct 37.4 (30.3-42.9) % MCV 85 (79-97) fl MCH 29 (28-32) pg MCHC 34 (30-34) % RDW 13.3 (13.2-15.2) % Plt Count 233 (140-440) K/mm3 Lymph % (Auto) 40.2 H (13.4-35.0) % Henry % (Auto) 5.7 (0.0-7.3) % Eos % (Auto) 1.3 (0.0-4.3) % Baso % (Auto) 0.6 (0.0-1.8) % Lymph # (Auto) 3.2 (1.2-5.4) K/mm3 Henry # (Auto) 0.5 (0.0-0.8) K/mm3 Eos # (Auto) 0.1 (0.0-0.4) K/mm3 Baso # (Auto) 0.0 (0.0-0.1) K/mm3 Seg Neutrophils % 52.2 (40.0-70.0) % Seg Neutrophils # 4.2 (1.8-7.7) K/mm3 Sodium 143 (137-145) mmol/L Potassium 3.3 L (3.6-5.0) mmol/L Chloride 101.6 (98-107) mmol/L Carbon Dioxide 28 (22-30) mmol/L Anion Gap 17 mmol/L BUN 9 (7-17) mg/dL Creatinine 0.7 (0.6-1.2) mg/dL Estimated GFR > 60 ml/min BUN/Creatinine Ratio 13 % Glucose 114 H (65-100) mg/dL Calcium 9.7 (8.4-10.2) mg/dL Plasma/Serum Alcohol < 0.01 (0-0.07) % - Medical Decision Making This patient presents to the emergency department with a complaint of suicidal and homicidal ideations in which she thinks of "killing myself and my children." For this reason the patient has been made a 1013 and placed on an ED hold. Patient's labs have been unremarkable thus far including CBC, metabolic panel and blood alcohol level, except for very mild hypokalemia with a potassium level of 3.3. She has been given a dose of potassium chloride. We are still waiting for a urine sample for urinalysis and UDS. The patient presents with elevated blood pressure with a history of h ypertension. The patient also appears anxious. She was given a dose of Catapres and Xanax with some improvement. The patient's amlodipine has been reconciled for the a.m. as well. As of right now the patient has asymptomatic hypertension. The patient will be seen by the psychiatric team in the morning to assist with further disposition. <RADHA JOYA - Last Filed: 04/30/21 14:53> Critical care attestation.: If time is entered above; I have spent that time in minutes in the direct care of this critically ill patient, excluding procedure time. <YANIRA SIM - Last Filed: 04/30/21 13:32> Critical Care Time: No Critical care attestation.: If time is entered above; I have spent that time in minutes in the direct care of this critically ill patient, excluding procedure time. <RADHA JOYA - Last Filed: 04/30/21 14:53> ED Disposition Is pt being admited?: No Does the pt Need Aspirin: No <YANIRA SIM - Last Filed: 04/30/21 13:32> Is pt being admited?: No Time of Disposition: 05:07 <RADHA JOYA - Last Filed: 04/30/21 14:53> Clinical Impression: Suicidal ideations, Homicidal ideations, Hypertension Dis[facility]: [facility] Condition: Stable Instructions: Hypertension (ED) Referrals: PRIMARY CARE, [Primary Care Provider] - 3-5 Days
[2021-04-30 04:09] LABS: Basophils % (Auto) 0.6 % (0.0-1.8); Eosinophils # (Auto) 0.1 K/mm3 (0.0-0.4); Eosinophils % (Auto) 1.3 % (0.0-4.3); Hematocrit 37.4 % (30.3-42.9); Hemoglobin 12.7 gm/dl (10.1-14.3); Lymphocytes # (Auto) 3.2 K/mm3 (1.2-5.4); Lymphocytes % (Auto) 40.2 % (13.4-35.0); Mean Corpuscular HGB Conc 34 % (30-34); Mean Corpuscular Volume 85 fl (79-97); Monocytes # (Auto) 0.5 K/mm3 (0.0-0.8); Monocytes % (Auto) 5.7 % (0.0-7.3); Platelet Count 233 K/mm3 (140-440); Red Blood Count 4.43 M/mm3 (3.65-5.03); Red Cell Distribution Width 13.3 % (13.2-15.2)
[2021-04-30 04:15] LABS: Blood Urea Nitrogen 9 mg/dL (7-17); Calcium 9.7 mg/dL (8.4-10.2); Hemolysis Index 1
[2021-04-30 04:20] LABS: BUN/Creatinine Ratio 13
[2021-04-30] MEDS ORDERED: POTASSIUM CHLORIDE ER 20 MEQ TAB PO ONE (04:23)
[2021-04-30] MEDS ORDERED: amLODIPine 10 MG TAB PO SCH (09:00)
[2021-04-30 09:50] LABS: Bilirubin,Urine NEG (Negative); Blood,Urine NEG (Negative); Color,Urine Yellow (Yellow); Mucus,Urine 3+ /HPF; Protein,Urine <15 mg/dL mg/dL (Negative); Urobilinogen,Urine < 2.0 mg/dL (<2.0)
[2021-04-30 09:58] LABS: Cocaine Screen,Urine Negative; Methadone Screen,Urine Negative
[2021-04-30 11:43] LABS: Amphetamine Screen,Urine Negative; Benzodiazepines Screen,Urine Negative; Cannabinoid Screen,Urine Negative; Opiate Screen,Urine Negative
--- NOTE | 2021-04-30 12:20 | Consultation ---
History of Present Illness - Reason for Consult Consult date: 04/30/21 Reason for consult: mental health evaluation - History of Present Psychiatric Illness Per ED Note: 35-year-old female presents to the emergency department for a mental health evaluation with the complaints of anxiety, suicidal and homicidal ideations. The patient says that she has a diagnosed history of anxiety for which she takes buspirone, but that medication "just makes me sleep." She says that she has a nonspecific plan to kill herself and her children. She says that she has "a lot going on in my life right now." She denies any hallucinations. She denies ever having been to an inpatient psychiatric facility. She has a medical history of hypertension and asthma. She takes amlodipine 10 mg once daily and Catapres 0.2 mg at night, and the patient says she is compliant. She denies any tobacco or illicit drug use. Kay Mccoy is a 35 year old female with history of anxiety. In my interview with the patient, she reports an ongoing depression since the of her son in 2007. The patient reports that her depression worsened in the last 3 weeks and yesterday she had suicidal ideation with a plan to shoot herself and her 3 children. The patient is unable to state her recent stressors. She denies having any current suicidal/homicidal ideation and denies hallucinations. PAST PSYCHIATRIC HISTORY: Diagnoses: Anxiety Suicide attempts or Self-harm behavior: Yes Prior psychiatric hospitalizations: Denies Substance Abuse history: Denies Previous psychiatric medications tried:Buspirone Outpatient treatment:Denies PAST MEDICAL HISTORY: None reported or document Family Psychiatric History: None reported or documented SOCIAL HISTORY Marital Status:Single Living Arrangements: Lives with boyfriend and her 3 children Employment Status:unemployed Access to guns/weapons: Denies Education:Unknown History of Abuse:Unknown Legal History: Denies REVIEW OF SYSTEMS Constitutional: Negative for weight loss ENT: Negative for stridor Respiratory: Negative for cough or hemoptysis All other systems reviewed and are negative MENTAL STATUS EXAMINATION General Appearance and Behavior: Age appropriate, good hygiene, wearing appropriate clothes. Cooperation: cooperative Psychomotor Behavior: Psychomotor normal Mood:OK Affect and affective range: Incongruent with stated mood Thought Process: Goal directed Thought Content: Not Suicidal Speech: Normal volume, Regular rate and rhythm, Suicidal Ideation: Denies Homicidal Ideation: Denies Hallucinations: Denies Delusions: None elicited Impulse Control: Unimpaired Insight and Judgment: Limited, poor judgment Memory: normal Attention: Distractible Orientation: alert and oriented Assessment and Plan (1) Current Visit: Yes Status: Acute Continue 1013 Start Prozac 20 mg po Daily The patient to comply with previously prescribed medications Risks, benefits and alternatives of medications discussed with the patient, questions answered and consent obtained from patient. PSYCHOTHERAPY: Supportive psychotherapy provided MEDICAL: Per primary team DELIRIUM PRECAUTIONS: Please re-orient patient frequently, keep lights on during the day, and minimize benzodiazepines and opiates as these medications could worsen patient's confusion. PUBLIC SAFETY TELECOMMUNICATOR: Defer to primary DISPOSITION: Recommend acute inpatient psychiatric hospitalization at this time. FOLLOW-UP: Will follow. Post hospital care: primary care provider, psychiatric provider Case staffed with Dr. Nino Medications and Allergies Medications and Allergies Allergies Allergy/AdvReac Type Severity Reaction Status Date / Time Iodinated Contrast Media Allergy Hives Verified 04/30/21 01:31 metoclopramide HCl Allergy tachycardia, Verified 04/30/21 01:31 [From Reglan] elevates BP prochlorperazine Allergy Headache Verified 04/30/21 01:31 [From Compazine] Home Medications Medication Instructions Recorded Confirmed Last Taken Type amLODIPine [Norvasc] 10 mg PO DAILY 04/30/21 04/30/21 04/30/21 09:37 History cloNIDine [Catapres] 0.2 mg PO QHS 04/30/21 04/30/21 Unknown History Active Meds: Active Medications Amlodipine Besylate (Amlodipine 10 Mg Tab) 10 mg PO DAILY [facility] Clonidine HCl (Clonidine 0.2 Mg Tab) 0.2 mg PO QHS [facility] Last Admin: 04/30/21 02:43 Dose: 0.2 mg Documented by: Clonidine HCl (Clonidine 0.2 Mg Tab) 0.2 mg PO QHS [facility] Mental Status Exam - Vital signs Last Vital Signs Temp 98.7 F 04/30/21 09:51 Pulse 82 04/30/21 12:04 Resp 20 04/30/21 09:51 BP 124/82 04/30/21 12:04 Pulse Ox 97 04/30/21 09:51 Results Result Diagrams: 04/30/21 03:16 04/30/21 03:16 Abnormal lab results 04/30/21 04/30/21 04/30/21 Range/Units 03:16 03:16 Unknown Lymph % (Auto) 40.2 H (13.4-35.0) % Potassium 3.3 L (3.6-5.0) mmol/L Glucose 114 H (65-100) mg/dL U Epithel Cells (Auto) 26.0 H (0-13.0) /HPF All other labs normal.
--- NOTE | 2021-04-30 12:34 | Event Note ---
Date: 04/30/21 Medications have been reconciled. Patient restarted on blood pressure medication. We will continue to monitor blood pressure states it was elevated. Patient having no signs or symptoms of endorgan damage.
[2021-04-30 12:53] VITALS: BP 122/64
[2021-04-30] MEDS ORDERED: FLUoxetine 20 MG CAP PO SCH (13:00)
[2021-05-01] MEDS ORDERED: amLODIPine 10 MG TAB PO SCH (10:00)
== END 2021-04-30 16:03 ==
LOC: EEVIPCON 01:19 → ED 01:19
DX: R45.851 Suicidal ideations (principal); R45.850 Homicidal ideations; I10 Essential (primary) hypertension; Z20.822 Contact with and (suspected) exposure to COVID-19
CPT/HCPCS: 36415; 80048; 80307; 81001; 85025; 99285; U0003; 80320; G0480